=== PATIENT | female | born 1955 | race Caucasian/White ===

== ENCOUNTER 2016-10-23 23:57 | Emergency (ER) | payer OTHER ==
[~2016-10-23] VITALS: Ht 152.4 cm; Wt 71.0 kg
[~2016-10-23 23:57] MED LIST: ATOR20TA38 PO; GABA100C14 PO; METF500T4 PO; METO-448 PO; PARO10TA26 PO
[2016-10-23 23:59] VITALS: Ht 152.4 cm; Wt 71.0 kg
[2016-10-24] MEDS ORDERED: ONDANSETRON (ODT) 4 MG TAB ODT STA (00:20)
[2016-10-24] MEDS ORDERED: ACET/BUTAL/CAFF/CODEINE CAP PO ONE (00:30)
--- NOTE | 2016-10-24 00:57 | ERD ---
ER Documentation Chief Complaint Date/Time DATE: 10/24/16 TIME: 00:55 Chief Complaint MALLOY X2 WEEKS C/O NAUSEA +DIZZINESS HPI 41-year-old female presents here in emergency department for complaint of headache for 2 weeks. Patient prescribed the headache as throbbing pain, 6/10 scale, accompanied with nausea and on and off dizziness at times. Patient denies any chest pain palpitations. Patient denies any changes in balance or memory. Patient denies any focal weakness numbness. Patient denies any head injury. Patient denies any changes in vision. She did not take any medications for the symptoms. Patient has history of hypertension, takes blood pressure medications, does not seem primary care doctor recently. Patient denies any chest pain or palpitations. Patient denies any dyspnea on exertion or dyspnea on lying down. ROS All systems reviewed and are negative except as per history of present illness. Medications Home Meds Active Scripts Metoprolol Tartrate* (Lopressor*) 25 Mg Tab, 25 MG PO BID for 30 Days, #60 TAB Prov:RIC JOSHUA 02/27/16 Reported Medications Gabapentin* (Gabapentin*) 100 Mg Capsule, 100 MG PO TID, #90 CAP 02/24/16 Paroxetine Hcl* (Paxil*) 10 Mg Tablet, 10 MG PO DAILY, TAB 02/24/16 Atorvastatin Calcium* (Atorvastatin Calcium*) 20 Mg Tablet, 20 MG PO QHS, #30 TAB 02/24/16 Metformin* (Glucophage*) 500 Mg Tab, 500 MG PO WITH BREAKFAST DINNE, #30 TAB 02/24/16 Allergies Allergies: Coded Allergies: No Known Allergy (Unverified , 02/24/16) PMhx/Soc History of Surgery: No Hx Neurological Disorder: No Hx Respiratory Disorders: Yes Hx Cardiac Disorders: No Hx Psychiatric Problems: Yes (Depression) Hx Miscellaneous Medical Probl: No Hx Alcohol Use: No Hx Substance Use: No Hx Tobacco Use: No FmHx Family History: No coronary disease, No diabetes, No other Physical Exam Vitals Vital Signs Date Time Temp Pulse Resp B/P Pulse Ox O2 Delivery O2 Flow Rate FiO2 10/24/16 02:35 63 16 176/71 98 Room Air 10/24/16 01:25 72 16 192/74 98 Room Air 10/23/16 23:59 96.4 65 18 19/77 99 Physical Exam GENERAL: The patient is well developed and appropriate for usual state of health, in no apparent distress. CHEST: Clear to auscultation bilaterally. There are no rales, wheezes or rhonchi. HEART: Regular rate and rhythm. No murmurs, clicks, rubs or gallops. No S3 or S4. ABDOMEN: Soft, nontender and nondistended. Good bowel sounds. No rebound or guarding. No gross peritonitis. No gross organomegaly or masses. No Luis sign or McBurney point tenderness. BACK: No midline or flank tenderness. EXTREMITIES: Equal pulses bilaterally. There is no peripheral clubbing, cyanosis or edema. No focal swelling or erythema. Full range of motion. Grossly neurovascularly intact. NEURO: Alert and oriented. Cranial nerves 2-12 intact. Motor strength in all 4 extremities with 5/5 strength. Sensation grossly intact. Normal speech and gait. Negative Romberg sign. Negative pronator drift. Bilateral eyes are PERRL EOM intact. SKIN: There is no apparent rash or petechia. The skin is warm and dry. HEMATOLOGIC AND LYMPHATIC: There is no evidence of excessive bruising or lymphedema. No gross cervical, axillary, or inguinal lymphadenopathy. Results 24 hrs Current Medications Medications (Trade) Dose Ordered Sig/Xi Route PRN Reason Start Time Stop Time Status Last Admin Dose Admin Acetam/Butalbital/ Caffeine/Codeine (Fioricet/ Codeine) 1 cap ONCE ONCE PO 10/24/16 00:30 10/24/16 00:31 DC 10/24/16 00:35 Ondansetron HCl (Zofran Odt) 4 mg ONCE STAT ODT 10/24/16 00:20 10/24/16 00:21 DC 10/24/16 00:36 Hydralazine HCl (Apresoline) 50 mg ONCE ONCE PO 10/24/16 02:00 10/24/16 02:01 DC 10/24/16 01:57 Patient was given medication for pain here in emergency department, after treatment, patient verbalized feeling much better. Patient's pain is improved.Patient was given Zofran here in the emergency department. After treatment, patient was able to tolerate po fluids here in the emergency department without any vomiting. There is no signs and symptoms of dehydration. I discussed this case with my attending physician, Dr. Avilez, recommended to give hydralazine 50 mg by mouth here in emergency department for treatment for elevated blood pressure, afterwards, blood pressure improved, headache also improved. PROCEDURE: CT brain without contrast. CLINICAL INDICATION: Headache. TECHNIQUE: CT scan of the brain was performed on a multi-detector high- resolution CT scanner. Contiguous axial images were obtained from the skull base to the vertex without intravenous contrast. Coronal and sagittal reformatted images were also obtained. Images were reviewed on the PACS workstation. One or more of the following dose reduction techniques were used: - Automated exposure control. - Adjustment of the mA and/or kV according to patient size. - Use of iterative reconstruction technique. Exam CTD/vol = 43.05 mGy. Total exam DLP = 720.23 mGy-cm. COMPARISON: None. FINDINGS: The ventricles and cortical sulci are within normal limits for patient's age. There are no areas of abnormal attenuation within the brain parenchyma. There is no mass effect or midline shift. There is no intracranial hemorrhage or abnormal extra-axial collection. There is a small parenchymal calcification within the right occipital lobe. The calvarium is intact. There is no evidence of fracture. Visualized paranasal sinuses and mastoid air cells are clear. IMPRESSION: No acute intracranial abnormality identified. Small parenchymal calcification could suggest old cysticercosis. .Truong Houston MD, MD Date Time Electronically viewed and signed by .Truong Houston MD, on 10/24/2016 01:05 .T/ CC: TERI WYNN CONTINUOUS DRYOUT OPERATOR Procedures/MDM Medical Decision Making: Patient's symptoms of headache nonspecific at this time , can be from the elevation of blood pressure, conventional from tension headache or migraine headache. Nonspecific at this time. No epidural subdural hematoma noted. There is low suspicion for neurological emergencies at this time since patients neurologic exam is normal. Patient did not have any altered level consciousness, vomiting, changes in balance or memory after incident. Patients CT scan of the head does not show any neurological emergencies at this time. Patient's blood pressure was elevated (>120/80) but appears stable without evidence of hypertension emergency or urgency. The patient was counseled about the risks of hypertension and urged to pursue outpatient monitoring and therapy within a week with their primary care physician. As per discussion with my attending physician, Dr. Avilez, ulcer patient on hydralazine 25 mg by mouth every 6 hours, for the next 10 days, is advised to follow-up with primary care doctor for further evaluation and treatment plan. Patient was advised to see neurology specialist if headache continues to persist Prescriptions was given for Fioricet with codeine for pain. Zofran for nausea and vomiting. Dispostion: Home. Stable Departure Diagnosis: Primary Impression: Headache Headache type: unspecified Headache chronicity pattern: acute headache Intractability: not intractable Qualified Code: R51 - Acute nonintractable headache, unspecified headache type Additional Impression: Hypertension Hypertension type: unspecified secondary hypertension Qualified Code: I15.9 - Secondary hypertension Condition: Stable Patient Instructions: High Blood Pressure (Hypertension), Self-Care for Headaches Referrals: [facility] Usted se malloy hecho un examen mdico de control que le indica que no est en giovanny condicin que requiera tratamiento urgente en el Departamento de Emergencia. Un estudio ms profundo y el tratamiento de gray condicin pueden esperar sin ningn riesgo hasta que usted sea atendida/o en el consultorio de gray mdico o giovanny cl joseph. Es responsabilidad suya arreglar giovanny jeremy para el seguimiento del augusto. MANEJO DE CONDICIONES NO URGENTES EN EL FUTURO 1) Si usted tiene un mdico de atencin primaria: Usted debera llamar a gray mdico de atencin primaria antes de venir al departamento de emergencia. Despus de las horas de consultorio, gray doctor o gray asociado/a est disponible por telfono. El mdico o enfermero de ev en el servicio telefnico puede asesorarle por nanette medio para atender el problema, o augusto contrario se puede programar giovanny jeremy. 2) Si usted no tiene un mdico de atencin primaria: Llame al mdico o clnica de referencia que aparece abajo candy las horas de consultorio para hacer giovanny jeremy para que le vean. CLINICAS: [facility] [phone] [facility] [phone] [facility] [phone] [place] [address] [phone] [place] [address] [phone] [facility]. [phone] [address] [facility]. [facility] () Usted se malloy hecho un examen mdico de control que le indica que no est en giovanny condicin que requiera tratamiento urgente en el Departamento de Emergencia. Un estudio ms profundo y el tratamiento de gray condicin pueden esperar sin ningn riesgo hasta que usted sea atendida/o en el consultorio de gray mdico o giovanny cl joseph. Es responsabilidad suya arreglar giovanny jeremy para el seguimiento del augusto. MANEJO DE CONDICIONES NO URGENTES EN EL FUTURO 1) Si usted tiene un mdico de atencin primaria: Usted debera llamar a gray mdico de atencin primaria antes de venir al departamento de emergencia. Despus de las horas de consultorio, gray doctor o gray asociado/a est disponible por telfono. El mdico o enfermero de ev en el servicio telefnico puede asesorarle por nanette medio para atender el problema, o augusto contrario se puede programar giovanny jeremy. 2) Si usted no tiene un mdico de atencin primaria: Llame al mdico o condado institucions de referencia que aparece abajo candy las horas de consultorio para hacer giovanny jeremy para que le vean. SI USTED NO PUEDE PAGAR PARA ABBEY UN MEDICO puede ir a: [facility] [address] [place] [address] [facility] [address] [place], [place] [id number] [place] [address] [address] [place] [address] [facility] [address] [place], [place] [id number] CUISIA,TERI Schumacher NP October 24, 2016 00:57
--- NOTE | 2016-10-24 01:05 | RADRPT ---
PROCEDURE: CT brain without contrast. CLINICAL INDICATION: Headache. TECHNIQUE: CT scan of the brain was performed on a multi-detector high-resolution CT scanner. Co ntiguous axial images were obtained from the skull base to the vertex without intravenous contrast. Coronal and sagittal reformatted images were also obtained. Images were reviewed on the PACS works tation. One or more of the following dose reduction techniques were used: - Automated exposure control. - Adjustment of the mA and/or kV according to patient size. - Use of iterative reconstruction technique. Exam CTD/vol = 43.05 mGy. Total exam DLP = 720.23 mGy-cm. COMPARISON: None. FINDINGS: The ventricles and cortical sulci are within normal limits for patient's age. There are no areas of abnormal attenuation within the brain parenchyma. There is no mass effect or midline shift. There is no intracranial hemorrhage or abnormal extra-axial collection. There is a small parenchymal calcifi cation within the right occipital lobe. The calvarium is intact. There is no evidence of fracture. Visualized paranasal sinuses and mastoid air cells are clear. IMPRESSION: No acute intracranial abnormality identified. Small parenchymal calcification could suggest old cysticercosis. .Truong Houston MD, Date Time Electronically viewed and signed by .Truong Houston MD, on 10/24/2016 01:05 .T/
[2016-10-24 02:35] VITALS: BP 176/71; PULSE 63; RESP 16
[2016-10-24] MEDS ORDERED: BUTA1CAP39 PO (02:45)
[2016-10-24] MEDS ORDERED: ONDA4TAB14 PO (02:45)
[2016-10-24] MEDS ORDERED: HYDR-3671 PO (02:45)
== END 2016-10-24 03:06 | disposition home or self-care (01) ==
LOC: FTE 23:57
DX: R51 Headache (principal); I15.9 Secondary hypertension, unspecified
CPT/HCPCS: 70450; Z7502; Z7610

== ENCOUNTER 2018-03-10 13:24 | Emergency (ER) | END 2018-03-10 17:37 | disposition home or self-care (01) ==

== ENCOUNTER 2018-04-05 17:59 | Emergency (ER) | END 2018-04-05 21:34 | disposition home or self-care (01) ==

== ENCOUNTER 2018-08-13 18:51 | Emergency (ER) | payer OTHER ==
[~2018-08-13] VITALS: Ht 144.8 cm; Wt 66.0 kg
[~2018-08-13 18:51] MED LIST changes: +ACET1TAB40 PO; +ACET500C5 PO; +BUTA1CAP39 PO; +HYDR-3671 PO; +METF-849 PO; -METF500T4 PO; +NAPR-985 PO; +ONDA4TAB14 PO; -PARO10TA26 PO; +PARO10TA57 PO
[2018-08-13 19:08] VITALS: BP 195/79; PULSE 68; RESP 16; Ht 144.8 cm; Wt 66.0 kg
[2018-08-13] MEDS ORDERED: IBUP-1542 PO (19:53)
[2018-08-13] MEDS ORDERED: CYCL10TA7 PO (19:53)
--- NOTE | 2018-08-13 19:57 | ERD ---
ER Documentation Chief Complaint Chief Complaint LEFT HIP/LEG SCIATICA X 1 MONTH, HX OF DDD HPI 63-year-old female presents with pain in her left gluteal area. She states that it started after she got an unspecified injection for chronic low back pain. She denies any weakness, fevers, bleeding or discharge. She denies any redness in the area. She is taking tramadol without relief for pain. ROS All systems reviewed and are negative except as per history of present illness. Medications Home Meds Active Scripts Cyclobenzaprine Hcl* (Cyclobenzaprine Hcl*) 10 Mg Tablet, 10 MG PO TID, #20 TAB Prov:ZIA QUINTANILLA MD 08/13/18 Ibuprofen* (Motrin*) 600 Mg Tab, 600 MG PO Q6, #30 TAB Prov:ZIA QUINTANILLA MD 08/13/18 Naproxen* (Naprosyn*) 500 Mg Tablet, 500 MG PO BID PRN for PAIN AND/OR INFLAMMATION, #15 TAB Prov:MELECIO MADISON PA-C 07/08/18 Acetaminophen with Codeine (Acetaminophen-Cod #3 Tablet) 1 Each Tablet, 1 TAB PO Q6H PRN for PAIN, #7 TAB Prov:ZIA QUINTANILLA MD 04/05/18 Acetaminophen* (Tylophen*) 500 Mg Capsule, 1 CAP PO Q6H PRN for PAIN AND OR ELEVATED TEMP, #20 CAP Prov:MELECIO MADISON PA-C 03/10/18 Ondansetron (Ondansetron Odt) 4 Mg Tab.rapdis, 4 MG PO Q8 PRN for NAUSEA AND/OR VOMITING, #30 TAB Prov:TERI WYNN NP 10/24/16 Glyiubrcjxejm-Xorejpnmsk-Dqnzjrjy-Codeine* (Fioricet w/ Codeine*) [id number] Capsule, 1 CAP PO Q6H PRN for PAIN LEVEL 1-5, #20 CAP Prov:TERI WYNN NP 10/24/16 Hydralazine Hcl* (Hydralazine Hcl*) 25 Mg Tab, 25 MG PO Q6H, #20 TAB Prov:TERI WYNN NP 10/24/16 Metoprolol Tartrate* (Lopressor*) 25 Mg Tab, 25 MG PO BID for 30 Days, #60 TAB Prov:RIC JOSHUA 02/27/16 Reported Medications Gabapentin* (Gabapentin*) 100 Mg Capsule, 100 MG PO TID, #90 CAP 02/24/16 Paroxetine Hcl* (Paxil*) 10 Mg Tablet, 10 MG PO DAILY, TAB 02/24/16 Atorvastatin Calcium* (Atorvastatin Calcium*) 20 Mg Tablet, 20 MG PO QHS, #30 TAB 02/24/16 Metformin* (Glucophage*) 500 Mg Tab, 500 MG PO WITH BREAKFAST DINNE, #30 TAB 02/24/16 Allergies Allergies: Coded Allergies: No Known Allergy (Unverified , 02/24/16) PMhx/Soc History of Surgery: No Hx Neurological Disorder: No Hx Respiratory Disorders: No Hx Cardiac Disorders: Yes (HTN) Hx Psychiatric Problems: No Hx Miscellaneous Medical Probl: Yes (DM, ARTHRITIS IN BACK) Hx Alcohol Use: No Hx Substance Use: No Hx Tobacco Use: No Smoking Status: Never smoker FmHx Family History: No diabetes, No coronary disease, No other Physical Exam Vitals Vital Signs Date Temp Pulse Resp B/P (MAP) Pulse Ox O2 O2 Flow FiO2 Time Delivery Rate 08/13/18 96.7 68 16 195/79 98 19:08 (117) Physical Exam Const: No acute distress Head: Atraumatic Eyes: Normal Conjunctiva ENT: Normal External Ears, Nose and Mouth. Neck: Full range of motion. No meningismus. Resp: Clear to auscultation bilaterally Cardio: Regular rate and rhythm, no murmurs Abd: Soft, non tender, non distended. Normal bowel sounds Skin: No petechiae or rashes Back: No midline or flank tenderness Ext: No cyanosis, or edema. Tenderness with subcutaneous spasm in the left gluteal area. No warmth, erythema, fluctuance. No restricted range of motion weakness. Normal gait. Neur: Awake and alert Psych: Normal Mood and Affect Results 24 hrs Current Medications Medications Dose Sig/Xi Start Time Status Last (Trade) Ordered Route PRN Stop Time Admin Dose Reason Admin Ibuprofen 600 mg ONCE ONCE 08/13/18 DC 08/13/18 (Motrin) PO 20:00 08/13/18 19:54 20:01 1 tab ONCE ONCE 08/13/18 DC 3/5/19 Acetaminophen PO 20:00 08/13/18 19:55 / 20:01 Hydrocodone Bitart ([place] ()) Procedures/MDM X-ray left hip 2V Interpreted by me: Bones: No fracture Joints: No dislocation Foreign body: None. Impression-normal left hip x-ray Patient presents with pain in the left gluteal area which started after an injection 1 month ago. No signs of retained foreign body, fracture, signs of cellulitis, additional abnormalities. She may have local irritation from the injection. She will be treated with ibuprofen, Flexeril, instructions for warm compresses, primary care follow-up and return precautions. She should return for fevers, redness, new worsening symptoms otherwise with primary care doctor. The patient was stable with no new complaints during the ER course. Clinically, there is no current evidence to suggest meningitis, sepsis, acute abdomen, pneumonia, stroke, acute coronary syndrome, pulmonary embolism, aortic dissection or any other emergent condition appearing to require further evaluation or hospitalization. Patient counseled regarding my diagnostic impression and care plan. Prior to discharge all questions answered. Pt agrees with treatment plan and understands strict return precautions. Pt is instructed to follow up with primary care provider within 24-48 hours. Precautionary instructions provided including instructions to return to the ER if not improving or for any worsening or changing symptoms or concerns. Departure Diagnosis: Primary Impression: Pain of left leg Condition: Stable Patient Instructions: Pain, Uncertain Cause (Acute), Tendonitis Referrals: DOCTOR,NOT ON STAFF (PCP) Additional Instructions: probablamente un reaccion de injeccion. pone agua tibia. x ray normal hoy. Cheque otro vez con gray doctor primario en el proximo horner or regresa para mas o nueva simptomas. ZIA QUINTANILLA MD Aug 13, 2018 19:56 WESTLEY GARCIA PA-C Aug 13, 2018 21:25
[2018-08-13] MEDS ORDERED: IBUPROFEN 600 MG TAB PO ONE (20:00)
[2018-08-13] MEDS ORDERED: HYDROCODONE/APAP (5/325) TAB PO ONE (20:00)
== END 2018-08-13 22:01 | disposition home or self-care (01) ==
LOC: FTE 18:51
DX: M79.605 Pain in left leg (principal); E11.9 Type 2 diabetes mellitus without complications; I10 Essential (primary) hypertension; Z79.84 Long term (current) use of oral hypoglycemic drugs
CPT/HCPCS: 73510; Z7502; Z7610

== ENCOUNTER 2018-09-16 22:55 | Emergency (ER) | payer OTHER ==
[~2018-09-16] VITALS: Ht 147.3 cm; Wt 67.3 kg
[~2018-09-16 22:55] MED LIST changes: +CYCL10TA7 PO; +IBUP-1542 PO
[2018-09-16 22:59] VITALS: Ht 147.3 cm; Wt 67.3 kg
[2018-09-17] MEDS ORDERED: KETOROLAC 60 MG INJ IM STA (01:40)
[2018-09-17] MEDS ORDERED: DIAZEPAM 5 MG/ML SYG IM ONE (02:00)
[2018-09-17] MEDS ORDERED: TRAM50TA2 PO (03:38)
[2018-09-17] MEDS ORDERED: CYCL10TA7 PO (03:38)
--- NOTE | 2018-09-17 03:42 | ERD ---
ER Documentation Chief Complaint Chief Complaint s/p slip and fall last wk, c/o pelvic/hip and inner thigh pain. denies KO HPI 63-year-old female sustained a fall last week with complaints of hip and pelvic pain. She denies any nausea vomiting fevers or chills. Pain is mild to moderate in intensity with no exacerbating or relieving factors other than movement ROS All systems reviewed and are negative except as per history of present illness. Medications Home Meds Active Scripts Tramadol HCl (Tramadol HCl) 50 Mg Tablet, 50 MG PO Q4 PRN for PAIN, #20 TAB Prov:ROBBIE DYE 09/17/18 Cyclobenzaprine Hcl* (Cyclobenzaprine Hcl*) 10 Mg Tablet, 10 MG PO TID, #15 TAB Prov:ROBBIE DYE 09/17/18 Cyclobenzaprine Hcl* (Cyclobenzaprine Hcl*) 10 Mg Tablet, 10 MG PO TID, #20 TAB Prov:ZIA QUINTANILLA MD 08/13/18 Ibuprofen* (Motrin*) 600 Mg Tab, 600 MG PO Q6, #30 TAB Prov:ZIA QUINTANILLA MD 08/13/18 Naproxen* (Naprosyn*) 500 Mg Tablet, 500 MG PO BID PRN for PAIN AND/OR INFLAMMATION, #15 TAB Prov:MELECIO MADISON PA-C 07/08/18 Acetaminophen with Codeine (Acetaminophen-Cod #3 Tablet) 1 Each Tablet, 1 TAB PO Q6H PRN for PAIN, #7 TAB Prov:ZIA QUINTANILLA MD 04/05/18 Acetaminophen* (Tylophen*) 500 Mg Capsule, 1 CAP PO Q6H PRN for PAIN AND OR ELEVATED TEMP, #20 CAP Prov:MELECIO MADISON PA-C 03/10/18 Ondansetron (Ondansetron Odt) 4 Mg Tab.rapdis, 4 MG PO Q8 PRN for NAUSEA AND/OR VOMITING, #30 TAB Prov:TERI WYNN NP 10/24/16 Uzbighccqtzre-Omlxxuafpx-Klafsjag-Codeine* (Fioricet w/ Codeine*) [id number] Capsule, 1 CAP PO Q6H PRN for PAIN LEVEL 1-5, #20 CAP Prov:TIANNATERI CELY Schumacher COMPUTER ENGINEERING TECHNICIAN 10/24/16 Hydralazine Hcl* (Hydralazine Hcl*) 25 Mg Tab, 25 MG PO Q6H, #20 TAB Prov:TERI WYNN TA TDemian COMPUTER ENGINEERING TECHNICIAN 10/24/16 Metoprolol Tartrate* (Lopressor*) 25 Mg Tab, 25 MG PO BID for 30 Days, #60 TAB Prov:RIC JOSHUA Shannon 02/27/16 Reported Medications Gabapentin* (Gabapentin*) 100 Mg Capsule, 100 MG PO TID, #90 CAP 02/24/16 Paroxetine Hcl* (Paxil*) 10 Mg Tablet, 10 MG PO DAILY, TAB 02/24/16 Atorvastatin Calcium* (Atorvastatin Calcium*) 20 Mg Tablet, 20 MG PO QHS, #30 TAB 02/24/16 Metformin* (Glucophage*) 500 Mg Tab, 500 MG PO WITH BREAKFAST DINNE, #30 TAB 02/24/16 Allergies Allergies: Coded Allergies: No Known Allergy (Unverified , 09/16/18) PMhx/Soc History of Surgery: No Anesthesia Reaction: No Hx Neurological Disorder: No Hx Respiratory Disorders: No Hx Cardiac Disorders: Yes (HTN) Hx Psychiatric Problems: No Hx Miscellaneous Medical Probl: Yes (NIDDM,arthritis) Hx Alcohol Use: No Hx Substance Use: No Hx Tobacco Use: No Smoking Status: Never smoker Physical Exam Vitals Vital Signs Date Temp Pulse Resp B/P (MAP) Pulse Ox O2 O2 Flow FiO2 Time Delivery Rate 09/17/18 61 16 143/117 100 Room Air 03:17 (126) 09/17/18 73 14 169/78 98 Room Air 01:21 (108) 09/16/18 97.5 80 20 185/80 99 22:59 (115) Physical Exam Const: No acute distress Head: Atraumatic Eyes: Normal Conjunctiva ENT: Normal External Ears, Nose and Mouth. Neck: Full range of motion. No meningismus. Resp: Clear to auscultation bilaterally Cardio: Regular rate and rhythm, no murmurs Abd: Soft, non tender, non distended. Normal bowel sounds Skin: No petechiae or rashes Back: No midline or flank tenderness Ext: No cyanosis, or edema Neur: Awake and alert Psych: Normal Mood and Affect Results 24 hrs Current Medications Medications Dose Sig/Xi Start Time Status Last (Trade) Ordered Route PRN Stop Time Admin Dose Reason Admin Ketorolac 60 mg ONCE STAT 09/17/18 DC 09/17/18 Tromethamine IM 01:40 09/17/18 01:46 (Toradol) 01:41 Diazepam 5 mg ONCE ONCE 09/17/18 DC 09/17/18 (Valium) IM 02:00 09/17/18 01:46 02:01 Procedures/MDM Medical decision making: Patient's musculoskeletal symptoms have stabilized while they have been evaluated in the department and are appropriate for outpatient work up. No evidence of cauda equina, cord compression, infiltrative, or infectious etiology. Departure Diagnosis: Primary Impression: Back pain Condition: Stable Patient Instructions: Hip Contusion ROBBIE DYE Sep 17, 2018 03:42
[2018-09-17 03:46] VITALS: BP 107/79; PULSE 74; RESP 17
== END 2018-09-17 03:46 | disposition home or self-care (01) ==
LOC: E/R 22:55
DX: M54.9 Dorsalgia, unspecified (principal); I10 Essential (primary) hypertension; E11.9 Type 2 diabetes mellitus without complications; Z79.84 Long term (current) use of oral hypoglycemic drugs
CPT/HCPCS: 72100; 72170; 96372; J1885; J3360; Z7502

== ENCOUNTER 2018-10-12 19:20 | Emergency (ER) | payer OTHER ==
[~2018-10-12] VITALS: Ht 147.3 cm; Wt 64.9 kg
[~2018-10-12 19:20] MED LIST changes: -BUTA1CAP39 PO; -HYDR-3671 PO; -NAPR-985 PO; -ONDA4TAB14 PO; -PARO10TA57 PO; +TRAM50TA2 PO
[2018-10-12 19:25] VITALS: Ht 147.3 cm; Wt 64.9 kg
[2018-10-12] MEDS ORDERED: ACET-141 PO (21:33)
[2018-10-12] MEDS ORDERED: TRAM50TA2 PO (21:33)
--- NOTE | 2018-10-12 21:37 | ERD ---
ER Documentation Chief Complaint Chief Complaint left leg pain x 3 weeks HPI 63-year-old female past medical history of diabetes, hypertension, depression, anxiety presents for left leg pain x1 month. She states that she fell about a month ago off her chair and has had pain ever since. She was here in the ER previously and was given some tramadol. She states that she took tramadol however has not been helping. There was imaging done which was negative when she was here in the ER in the past. She denies loss of bowel bladder function. States that her pain is 6 out of 10. Worse with movement. No other modifying factors noted. No other treatments tried at home. ROS All systems reviewed and are negative except as per history of present illness. Medications Home Meds Active Scripts Tramadol HCl (Tramadol HCl) 50 Mg Tablet, 50 MG PO Q6H PRN for PAIN, #20 TAB Prov:VIKKI NIETO DO 10/12/18 Acetaminophen* (Acetaminophen*) 500 MG Extra Strength Tablet, 500 MG PO Q4H PRN for PAIN AND OR ELEVATED TEMP, #30 TAB Prov:VIKKI NIETO DO 10/12/18 Tramadol HCl (Tramadol HCl) 50 Mg Tablet, 50 MG PO Q4 PRN for PAIN, #20 TAB Prov:ROBBIE DYE 09/17/18 Cyclobenzaprine Hcl* (Cyclobenzaprine Hcl*) 10 Mg Tablet, 10 MG PO TID, #15 TAB Prov:ROBBIE DYE 09/17/18 Ibuprofen* (Motrin*) 600 Mg Tab, 600 MG PO Q6, #30 TAB Prov:ZIA QUINTANILLA MD 08/13/18 Acetaminophen with Codeine (Acetaminophen-Cod #3 Tablet) 1 Each Tablet, 1 TAB PO Q6H PRN for PAIN, #7 TAB Prov:ZIA QUINTANILLA MD 04/05/18 Acetaminophen* (Tylophen*) 500 Mg Capsule, 1 CAP PO Q6H PRN for PAIN AND OR ELEVATED TEMP, #20 CAP Prov:MELECIO MADISON PA-C 03/10/18 Metoprolol Tartrate* (Lopressor*) 25 Mg Tab, 25 MG PO BID for 30 Days, #60 TAB Prov:RIC JOSHUA 02/27/16 Reported Medications Gabapentin* (Gabapentin*) 100 Mg Capsule, 100 MG PO TID, #90 CAP 02/24/16 Atorvastatin Calcium* (Atorvastatin Calcium*) 20 Mg Tablet, 20 MG PO QHS, #30 TAB 02/24/16 Metformin* (Glucophage*) 500 Mg Tab, 1000 MG PO WITH BREAKFAST DINNE, #30 TAB 02/24/16 Allergies Allergies: Coded Allergies: No Known Allergy (Unverified , 09/16/18) PMhx/Soc History of Surgery: No Anesthesia Reaction: No Hx Neurological Disorder: No Hx Respiratory Disorders: No Hx Cardiac Disorders: Yes (HTN) Hx Psychiatric Problems: No Hx Miscellaneous Medical Probl: Yes (NIDDM,arthritis, ANXIETY) Hx Alcohol Use: No Hx Substance Use: No Hx Tobacco Use: No Smoking Status: Never smoker Physical Exam Vitals Vital Signs Date Temp Pulse Resp B/P (MAP) Pulse Ox O2 O2 Flow FiO2 Time Delivery Rate 10/12/18 98.0 96 18 181/77 98 19:25 (111) Physical Exam Const: No acute distress Resp: Clear to auscultation bilaterally Cardio: Regular rate and rhythm, no murmurs Skin: No petechiae or rashes Back: No midline or flank tenderness Neur: Awake and alert Psych: Normal Mood and Affect Lower Extremity -bilateral: Skin: No laceration Compartments: Soft Motor: Full active range of motion hip/knee/ankle/foot Sensation: Intact to light touch FDWS/MF/LF/P surfaces. Bones: Patient has tenderness palpation over the entire left leg Joints: No effusion or laxity Pulses/Perfusion: 2+ DP, Capillary refill < 2 seconds Results 24 hrs Laboratory Tests Test 10/12/18 20:10 Urine Color YELLOW Urine Clarity CLEAR Urine pH 6.0 Urine Specific Rayle 1.037 Urine Ketones NEGATIVE mg/dL Urine Nitrite NEGATIVE mg/dL Urine Bilirubin NEGATIVE mg/dL Urine Urobilinogen NEGATIVE mg/dL Urine Leukocyte Esterase NEGATIVE Reba/ul Urine Microscopic RBC 2 /HPF Urine Microscopic WBC 1 /HPF Urine Hemoglobin 1+ mg/dL Urine Glucose 3+ mg/dL Urine Total Protein NEGATIVE mg/dl Procedures/MDM Medical Decision Making: Differential diagnosis includes but not limited to fracture, dislocation, muscle strain, ligamentous sprain. Patient appeared well on physical exam. There was tenderness over the entire left leg Patient was neurovascularly intact ED course: UA was done which was negative for infection. There is no RBCs to support kidney stone which the patient was concerned about. Patient possibly has muscle strain. She is advised to follow with primary care physician for possible referral to physical therapy. Prescription(s): Patient given prescription for supportive medication(s) and tramadol short course. Patient advised to follow up with PCP in 1-2 days. Patient advised to return to ED for new or worsening symptoms. Patient stable on discharge from the ED. Disclaimer: Inadvertent spelling and grammatical errors are likely due to EHR/dictation software use and do not reflect on the overall quality of patient care. Also, please note that the electronic time recorded on this note does not necessarily reflect the actual time of the patient encounter. Departure Diagnosis: Primary Impression: Pain of left leg Condition: Fair Patient Instructions: Possible Causes of Low Back or Leg Pain Referrals: [facility] YOU HAVE RECEIVED A MEDICAL SCREENING EXAM AND THE RESULTS INDICATE THAT YOU DO NOT HAVE A CONDITION THAT REQUIRES URGENT TREATMENT IN THE EMERGENCY DEPARTMENT. FURTHER EVALUATION AND TREATMENT OF YOUR CONDITION CAN WAIT UNTIL YOU ARE SEEN IN YOUR DOCTORS OFFICE WITHIN THE NEXT 1-2 DAYS. IT IS YOUR RESPONSIBILITY TO MAKE AN APPOINTMENT FOR FOLOW-UP CARE. IF YOU HAVE A PRIMARY DOCTOR --you should call your primary doctor and schedule an appointment IF YOU DO NOT HAVE A PRIMARY DOCTOR YOU CAN CALL OUR PHYSICIAN REFERRAL HOTLINE AT IF YOU CAN NOT AFFORD TO SEE A PHYSICIAN YOU CAN CHOSE FROM THE FOLLOWING ON LICENSE OF [facility] [place] [address] [facility]. [facility] [address] [facility] [facility] [address] [facility] [address] [facility]. [facility] [address] [facility]. [facility]. [address] Additional Instructions: Llame al doctor MAANA y gia giovanny CT PARA DENTRO DE 1-2 CAZARES.Dgale a la secretaria que nosotros le instruimos hacer esta ct.Avise o llame si gray condicin se empeora antes de la ct. Regresa aqui si peor o no mejor. VIKKI NIETO DO October 12, 2018 21:37
[2018-10-12 21:48] VITALS: BP 148/69; PULSE 88; RESP 17
[2018-10-12] MEDS ORDERED: KETOROLAC 15 MG INJ IM STA (22:01)
== END 2018-10-12 22:13 | disposition home or self-care (01) ==
LOC: FTE 19:20
DX: M79.605 Pain in left leg (principal); I10 Essential (primary) hypertension; E11.9 Type 2 diabetes mellitus without complications; Z79.84 Long term (current) use of oral hypoglycemic drugs
CPT/HCPCS: 81001; 96372; J1885; Z7502

== ENCOUNTER 2018-10-15 19:53 | Emergency (ER) | payer OTHER ==
[~2018-10-15] VITALS: Ht 149.9 cm; Wt 64.9 kg
[~2018-10-15 19:53] MED LIST changes: +ACET-141 PO
[2018-10-15 19:59] VITALS: Ht 149.9 cm; Wt 64.9 kg
--- NOTE | 2018-10-15 21:43 | ERD ---
ER Documentation Chief Complaint Chief Complaint LOWER LEFT BACK PAIN HPI The patient is a 63-year-old female, presenting with chronic low back pain, radiating down to right lower extremity intermittently for the last 4 months. She denies fecal/urinary incontinence, was seen in the ER multiple times. She had a lumbar x-ray on September 17, 2018 that was unremarkable. She was seen in the ER 3 days ago and treated with tramadol. She denies fever, chills, neck pain, chest pain, dyspnea, abdominal pain, vomiting. She does not smoke, drink, denies any history of IV drug abuse Past medical history: Diabetes mellitus, dyslipidemia, hypertension, anxiety, depression, chronic low back pain Past surgical history: None ROS All systems reviewed and are negative except as per history of present illness. Medications Home Meds Active Scripts Hydrocodone/Acetaminophen ([place] 5-325 Tablet) 1 Each Tablet, 1 TAB PO Q6H PRN for PAIN, #7 TAB Prov:VIKKI TINSLEY MD 10/15/18 Carisoprodol* (Soma*) 350 Mg Tablet, 350 MG PO TID PRN for MUSCLE SPASMS, #15 TAB Prov:VIKKI TINSLEY MD 10/15/18 Tramadol HCl (Tramadol HCl) 50 Mg Tablet, 50 MG PO Q6H PRN for PAIN, #20 TAB Prov:VIKKI NIETO DO 10/12/18 Acetaminophen* (Acetaminophen*) 500 MG Extra Strength Tablet, 500 MG PO Q4H PRN for PAIN AND OR ELEVATED TEMP, #30 TAB Prov:VIKKI NIETO DO 10/12/18 Tramadol HCl (Tramadol HCl) 50 Mg Tablet, 50 MG PO Q4 PRN for PAIN, #20 TAB Prov:ROBBIE DYE 09/17/18 Cyclobenzaprine Hcl* (Cyclobenzaprine Hcl*) 10 Mg Tablet, 10 MG PO TID, #15 TAB Prov:ROBBIE DYE 09/17/18 Ibuprofen* (Motrin*) 600 Mg Tab, 600 MG PO Q6, #30 TAB Prov:ZIA QUINTANILLA MD 08/13/18 Acetaminophen with Codeine (Acetaminophen-Cod #3 Tablet) 1 Each Tablet, 1 TAB PO Q6H PRN for PAIN, #7 TAB Prov:ZIA QUINTANILLA MD 10/26/18 Acetaminophen* (Tylophen*) 500 Mg Capsule, 1 CAP PO Q6H PRN for PAIN AND OR ELEVATED TEMP, #20 CAP Prov:MELECIO MADISON PA-C 03/10/18 Metoprolol Tartrate* (Lopressor*) 25 Mg Tab, 25 MG PO BID for 30 Days, #60 TAB Prov:RIC JOSHUA 02/27/16 Reported Medications Gabapentin* (Gabapentin*) 100 Mg Capsule, 100 MG PO TID, #90 CAP 02/24/16 Atorvastatin Calcium* (Atorvastatin Calcium*) 20 Mg Tablet, 20 MG PO QHS, #30 TAB 02/24/16 Metformin* (Glucophage*) 500 Mg Tab, 1000 MG PO WITH BREAKFAST DINNE, #30 TAB 02/24/16 Allergies Allergies: Coded Allergies: No Known Allergy (Unverified , 09/16/18) PMhx/Soc History of Surgery: No Anesthesia Reaction: No Hx Neurological Disorder: No Hx Respiratory Disorders: No Hx Cardiac Disorders: Yes (HTN) Hx Psychiatric Problems: No Hx Miscellaneous Medical Probl: Yes (NIDDM,arthritis, ANXIETY) Hx Alcohol Use: No Hx Substance Use: No Hx Tobacco Use: No Smoking Status: Never smoker Physical Exam Vitals Vital Signs Date Temp Pulse Resp B/P (MAP) Pulse Ox O2 O2 Flow FiO2 Time Delivery Rate 10/15/18 98.0 65 18 147/73 100 Room Air 23:34 (97) 10/15/18 67 18 154/74 100 Room Air 22:47 (100) 10/15/18 98.0 69 19 188/74 100 Room Air 21:05 (112) 10/15/18 97.1 72 18 219/92 98 19:59 (134) Physical Exam Const: No acute distress. Head: Atraumatic. Eyes: Normal Conjunctiva. ENT: Normal External Ears, Nose and Mouth. Neck: Full range of motion. No meningismus. Resp: Clear to auscultation bilaterally. Cardio: Regular rate and rhythm. Abd: Soft, non distended, normal bowel sounds, non tender. Skin: No petechiae or rashes. Back: No midline or flank tenderness. Ext: No cyanosis, or edema. Positive for straight leg raising test on the right lower extremity Neur: Awake and alert. No focal deficit Psych: Normal Mood and Affect. Result Diagram: 10/15/18213810/15/189 Results 24 hrs Laboratory Tests Test 10/15/18 21:39 10/15/18 21:55 White Blood Count 5.8 10^3/ul Red Blood Count 4.41 10^6/ul Hemoglobin 13.0 g/dl Hematocrit 38.7 % Mean Corpuscular Volume 87.8 fl Mean Corpuscular Hemoglobin 29.5 pg Mean Corpuscular Hemoglobin Concent 33.6 g/dl Red Cell Distribution Width 12.3 % Platelet Count 253 10^3/UL Mean Platelet Volume 9.9 fl Immature Granulocytes % 0.300 % Neutrophils % 42.6 % Lymphocytes % 40.1 % Monocytes % 8.6 % Eosinophils % 7.5 % Basophils % 0.9 % Nucleated Red Blood Cells % 0.0 /100WBC Immature Granulocytes # 0.020 10^3/ul Neutrophils # 2.5 10^3/ul Lymphocytes # 2.3 10^3/ul Monocytes # 0.5 10^3/ul Eosinophils # 0.4 10^3/ul Basophils # 0.1 10^3/ul Nucleated Red Blood Cells # 0.0 10^3/ul Sodium Level 140 mmol/L Potassium Level 3.9 mmol/L Chloride Level 105 mmol/L Carbon Dioxide Level 28 mmol/L Anion Gap 7 Blood Urea Nitrogen 14 mg/dl Creatinine 0.35 mg/dl Est Glomerular Filtrat Rate mL/min > 60 mL/min Glucose Level 253 mg/dl Calcium Level 9.4 mg/dl Total Bilirubin 0.3 mg/dl Direct Bilirubin 0.00 mg/dl Indirect Bilirubin 0.3 mg/dl Aspartate Amino Transf (AST/SGOT) 30 IU/L Alanine Aminotransferase (ALT/SGPT) 41 IU/L Alkaline Phosphatase 231 IU/L Total Protein 7.0 g/dl Albumin 3.9 g/dl Globulin 3.10 g/dl Albumin/Globulin Ratio 1.25 Lipase 50 U/L Bedside Urine pH (LAB) 6.0 Bedside Urine Protein (LAB) Negative Bedside Urine Glucose (UA) 0.50% Bedside Urine Ketones (LAB) Negative Bedside Urine Blood Trace-lysed Bedside Urine Nitrite (LAB) Negative Bedside Urine Leukocyte Esterase (L Negative Current Medications Medications Dose Sig/Xi Start Time Status Last (Trade) Ordered Route PRN Stop Time Admin Dose Reason Admin Morphine 2 mg ONCE STAT 10/15/18 DC 10/15/18 Sulfate IV 22:09 10/15/18 22:24 (morphine) 22:11 Ketorolac 30 mg ONCE STAT 10/15/18 DC 10/15/18 Tromethamine IV 22:09 10/15/18 22:25 (Toradol) 22:11 Ondansetron 4 mg ONCE STAT 10/15/18 DC 10/15/18 HCl (Zofran IV 22:10/15/18 22:25 Inj) 22:11 Procedures/MDM MEDICAL MAKING DECISION: The patient is a 63-year-old female, presenting with chronic low back pain with sciatica, was treated with morphine 2 mg IV, Toradol 30 mg IV for pain and Zofran 4 mg IV for nausea with good response, is stable outpatient follow-up The differential diagnoses considered include but are not limited to caudal equina syndrome, spinal abscess, DJD, diskitis, lumbar radiculopathy. Departure Diagnosis: Primary Impression: Back pain with left-sided sciatica Condition: Good Comments She was discharged with 7 tablets of Cast[place] 5 mg and Soma I discussed the findings with the patient. I advised the patient to follow-up with the primary physician in about 2-3 days, sooner if needed and return if any concern, advised to have back MRI for further evaluation Disclaimer: Inadvertent spelling and grammatical errors are likely due to EHR/dictation software use and do not reflect on the overall quality of patient care. Also, please note that the electronic time recorded on this note does not necessarily reflect the actual time of the patient encounter. VIKKI TINSLEY MD October 15, 2018 21:43
[2018-10-15] MEDS ORDERED: ONDANSETRON 4 MG INJ IV STA (22:09)
[2018-10-15] MEDS ORDERED: morphine 2 MG INJ IV STA (22:09)
[2018-10-15] MEDS ORDERED: KETOROLAC 30 MG INJ IV STA (22:09)
[2018-10-15] MEDS ORDERED: CARI350T PO (23:14)
[2018-10-15] MEDS ORDERED: HYDR-4011 PO (23:15)
[2018-10-15 23:34] VITALS: BP 147/73; PULSE 65; RESP 18
== END 2018-10-15 23:34 | disposition home or self-care (01) ==
LOC: E/R 19:53
DX: M54.42 Lumbago with sciatica, left side (principal); I10 Essential (primary) hypertension; E11.9 Type 2 diabetes mellitus without complications; Z79.84 Long term (current) use of oral hypoglycemic drugs
CPT/HCPCS: 36415; 80053; 81003; 83690; 85025; 96374; 96375; J1885; J2270; J2405; Z7502

== ENCOUNTER 2019-01-11 23:28 | Emergency (ER) | payer OTHER ==
[~2019-01-11] VITALS: Ht 149.9 cm; Wt 64.2 kg
[~2019-01-11 23:28] MED LIST changes: +CARI350T PO; +HYDR-4011 PO
[2019-01-11 23:29] VITALS: Ht 149.9 cm; Wt 64.2 kg
[2019-01-11] MEDS ORDERED: ASPIRIN 325 MG TAB PO STA (23:38)
--- NOTE | 2019-01-11 23:44 | ERD ---
ER Documentation Chief Complaint Chief Complaint CHEST PAIN X 1 WEEK. HPI This is a 63-year-old female with a history of hypertension, diabetes and depression who presents to the emergency room for evaluation of chest pain. The patient was seen in outside clinic and did have an EKG done and was sent to the ER for evaluation of her chest pain. The patient states she had chest pain for the past 2 weeks and states is been constant however it is gotten worse over the past 48 hours. The patient denies any headache, fevers, chills, nausea or vomiting or diaphoresis associated with this and came to the ER for evaluation of her symptoms. She denies any aggravating or relieving factors at this time ROS All systems reviewed and are negative except as per history of present illness. Medications Home Meds Active Scripts Hydrocodone/Acetaminophen ([place] 5-325 Tablet) 1 Each Tablet, 1 TAB PO Q6H PRN for PAIN, #7 TAB Prov:VIKKI TINSLEY MD 10/15/18 Carisoprodol* (Soma*) 350 Mg Tablet, 350 MG PO TID PRN for MUSCLE SPASMS, #15 TAB Prov:VIKKI TINSLEY MD 10/15/18 Tramadol HCl (Tramadol HCl) 50 Mg Tablet, 50 MG PO Q6H PRN for PAIN, #20 TAB Prov:VIKKI NIETO DO 10/12/18 Acetaminophen* (Acetaminophen*) 500 MG Extra Strength Tablet, 500 MG PO Q4H PRN for PAIN AND OR ELEVATED TEMP, #30 TAB Prov:VIKKI NIETO DO 10/12/18 Tramadol HCl (Tramadol HCl) 50 Mg Tablet, 50 MG PO Q4 PRN for PAIN, #20 TAB Prov:ROBBIE DYE 09/17/18 Cyclobenzaprine Hcl* (Cyclobenzaprine Hcl*) 10 Mg Tablet, 10 MG PO TID, #15 TAB Prov:ROBBIE DYE 09/17/18 Ibuprofen* (Motrin*) 600 Mg Tab, 600 MG PO Q6, #30 TAB Prov:ZIA QUINTANILLA MD 08/13/18 Acetaminophen with Codeine (Acetaminophen-Cod #3 Tablet) 1 Each Tablet, 1 TAB PO Q6H PRN for PAIN, #7 TAB Prov:ZIA QUINTANILLA MD 04/05/18 Acetaminophen* (Tylophen*) 500 Mg Capsule, 1 CAP PO Q6H PRN for PAIN AND OR ELEVATED TEMP, #20 CAP Prov:MELECIO MADISON PA-C 03/10/18 Metoprolol Tartrate* (Lopressor*) 25 Mg Tab, 25 MG PO BID for 30 Days, #60 TAB Prov:RIC JOSHUA 02/27/16 Reported Medications Gabapentin* (Gabapentin*) 100 Mg Capsule, 100 MG PO TID, #90 CAP 02/24/16 Atorvastatin Calcium* (Atorvastatin Calcium*) 20 Mg Tablet, 20 MG PO QHS, #30 TAB 02/24/16 Metformin* (Glucophage*) 500 Mg Tab, 1000 MG PO WITH BREAKFAST DINNE, #30 TAB 02/24/16 Allergies Allergies: Coded Allergies: No Known Allergy (Unverified , 09/16/18) PMhx/Soc History of Surgery: No Anesthesia Reaction: No Hx Neurological Disorder: No Hx Respiratory Disorders: No Hx Cardiac Disorders: Yes (HTN) Hx Psychiatric Problems: No Hx Miscellaneous Medical Probl: Yes (NIDDM,arthritis, ANXIETY) Hx Alcohol Use: No Hx Substance Use: No Hx Tobacco Use: No Smoking Status: Unknown if ever smoked Physical Exam Vitals Vital Signs Date Temp Pulse Resp B/P (MAP) Pulse Ox O2 O2 Flow FiO2 Time Delivery Rate 01/11/19 98.0 73 17 156/101 99 Room Air 23:40 (119) 01/11/19 97.4 74 16 201/83 96 23:29 (122) Physical Exam INITIAL VITAL SIGNS: Reviewed by me GENERAL: The patient is well developed and appropriate for usual state of health in no apparent distress HEENT: Pupils equal, round, and reactive to light. EOMI. There is no scleral icterus. NECK: C-spine is soft and supple, there is no meningismus. There is no cervical lymphadenopathy. LUNGS: Clear to auscultation bilaterally. There are no rales, wheezes or rhonchi. HEART: Regular rate and rhythm, no murmurs, clicks, rubs or gallops. ABDOMEN: Soft, non-tender, non-distended. There are bowel sounds in all four quadrants. No rebound or guarding. EXTREMITIES: There is no peripheral cyanosis or edema. No focal swelling or erythema. NEUROLOGICAL: The patient moves all four extremities with 5/5 strength. Cranial nerves II - XII are intact. Normal gait. Alert and oriented SKIN: There is no apparent rash or petechiae. HEME/LYMPHATIC: There is no evidence of excessive bruising or lymphedema. PSYCHIATRIC: The patient does not appear anxious or depressed. Result Diagram: 01/11/19235001/11/191 Results 24 hrs Laboratory Tests Test 01/11/19 23:51 White Blood Count 7.4 10^3/ul Red Blood Count 4.34 10^6/ul Hemoglobin 13.0 g/dl Hematocrit 38.3 % Mean Corpuscular Volume 88.2 fl Mean Corpuscular Hemoglobin 30.0 pg Mean Corpuscular Hemoglobin Concent 33.9 g/dl Red Cell Distribution Width 12.0 % Platelet Count 254 10^3/UL Mean Platelet Volume 10.7 fl Immature Granulocytes % 0.300 % Neutrophils % 35.4 % Lymphocytes % 41.7 % Monocytes % 8.3 % Eosinophils % 13.1 % Basophils % 1.2 % Nucleated Red Blood Cells % 0.0 /100WBC Immature Granulocytes # 0.020 10^3/ul Neutrophils # 2.6 10^3/ul Lymphocytes # 3.1 10^3/ul Monocytes # 0.6 10^3/ul Eosinophils # 1.0 10^3/ul Basophils # 0.1 10^3/ul Nucleated Red Blood Cells # 0.0 10^3/ul Sodium Level 143 mmol/L Potassium Level 3.8 mmol/L Chloride Level 108 mmol/L Carbon Dioxide Level 25 mmol/L Anion Gap 10 Blood Urea Nitrogen 21 mg/dl Creatinine 0.45 mg/dl Est Glomerular Filtrat Rate mL/min > 60 mL/min Glucose Level 210 mg/dl Calcium Level 9.2 mg/dl Troponin I < 0.012 ng/ml Current Medications Medications Dose Sig/Xi Start Time Status Last (Trade) Ordered Route PRN Stop Time Admin Dose Reason Admin Aspirin 325 mg ONCE STAT 01/11/19 DC 01/11/19 (Aspirin) PO 23:38 01/11/19 23:52 23:39 Procedures/MDM EKG: Rate/Rhythm: [Normal Sinus Rhythm] QRS, ST, T-waves: [No changes consistent w/ acute ischemia] Impression: [No evidence of ischemia or arrhythmia] EKG: #2 Rate/Rhythm: [Normal Sinus Rhythm] QRS, ST, T-waves: [No changes consistent w/ acute ischemia] Impression: [No evidence of ischemia or arrhythmia] Chest X-ray 1V Interpreted by me: Soft Tissue: No acute abnormalities Bones: No acute abnormalities Mediastinum/Cardiac Silhouette/Lungs: [No acute abnormalities] This 63-year-old female presents to the ER for evaluation of chest pain. The patient has had constant chest pain for the past few weeks. On my exam she was slightly hypertensive however she was otherwise hemodynamically stable with no focal neurological deficits. Her EKG is nonischemic, second EKG was obtained and shows no evolution of ST changes. Chest x-ray is clear troponin is negative and the patient states she is feeling much better at this time. The patient will be discharged home with strict return precautions Departure Diagnosis: Primary Impression: Chest pain Additional Impression: Hypertension Condition: Fair TRUDI WHITNEY DO Jan 11, 2019 23:44
[2019-01-12 00:52] VITALS: BP 134/68; PULSE 67; RESP 17
== END 2019-01-12 00:53 | disposition home or self-care (01) ==
LOC: E/R 23:28
DX: R07.9 Chest pain, unspecified (principal); I10 Essential (primary) hypertension; E11.9 Type 2 diabetes mellitus without complications; Z79.84 Long term (current) use of oral hypoglycemic drugs
CPT/HCPCS: 36415; 71045; 80048; 84484; 85025; 93005; Z7502; Z7610